=== PATIENT | female | born 1945 | race Caucasian/White ===

== ENCOUNTER 2017-09-05 08:39 | Inpatient (IN) | payer MEDICARE ==
[~2017-09-05] VITALS: Ht 167.6 cm; Wt 51.0 kg
[~2017-09-05 08:39] MED LIST: ADDE30XR PO; CYMB60CA PO; HRT PO; [UNRECOGNIZED DRUG - OTHER] PO; suboxone PO
[2017-09-05] MEDS ORDERED: GENTAMICIN SULFATE 80 MG/2 ML VIAL ONE (08:53)
[2017-09-05] MEDS ORDERED: ACETAMINOPHEN 1000 MG/100 ML 100 ML IV ONE ×2 (09:23)
[2017-09-05] MEDS ORDERED: TRAM50TA PO (09:28)
[2017-09-05] MEDS ORDERED: CHLORHEXIDINE GLUCONATE 2 % 1 PACK (2 CLOTHS) TOPICAL PRN (09:30)
[2017-09-05] MEDS ORDERED: INSULIN HUMAN REGULAR 1,000 UNITS/10 ML VIAL SQ PRN (09:30)
[2017-09-05] MEDS ORDERED: POVIDONE IODINE 5% (ANTISEPSIS KIT) 4 APPLICATIONS EACH NARE PRN (09:30)
[2017-09-05] MEDS ORDERED: LACTATED RINGER'S 1000 ML IV PRN (09:30)
[2017-09-05] MEDS ORDERED: SODIUM CHLORID 0.9% 500 ML IV PRN (09:30)
[2017-09-05] MEDS ORDERED: METOPROLOL TARTRATE 25 MG TAB PO PRN (09:30)
[2017-09-05] MEDS ORDERED: EXPAREL PERI-ARTICULAR INJECTION (TOTAL VOL. 60 ML) P-ARTICULR SCH ×2 (09:45)
[2017-09-05] MEDS ORDERED: VANCOMYCIN 1000 MG/NS 250 ML (for <70 kg) IV SCH ×2 (09:45)
[2017-09-05] MEDS ORDERED: TRANEXAMIC ACID IV SCH (09:45)
[2017-09-05] MEDS ORDERED: SODIUM CHLORIDE 0.9% IV SCH (09:45)
[2017-09-05] MEDS ORDERED: ceFAZolin 2 GM PREMIX 50 ML IV SCH (09:45)
[2017-09-05] MEDS ORDERED: CHLORHEXIDINE GLUCONATE 4% SOLN 120 ML BTL TOPICAL SCH (09:45)
[2017-09-05] MEDS ORDERED: VANCOMYCIN 1 GM/200 ML INJ 200 ML IV ONE (09:54)
[2017-09-05] MEDS ORDERED: ceFAZolin INJ 1,000 MG VIAL ONE (10:16)
[2017-09-05] MEDS ORDERED: ONDANSETRON HCL 4 MG/2 ML VIAL IV ONE (12:00)
[2017-09-05] MEDS ORDERED: PROPOFOL 200 MG/20 ML AMP IV ONE (12:00)
[2017-09-05] MEDS ORDERED: PHENYLEPH/NS 1000 MCG/10 ML SYR IV ONE (12:00)
[2017-09-05] MEDS ORDERED: ROCURONIUM INJ 50 MG/5 ML SYRINGE IV PUSH ONE (12:00)
[2017-09-05] MEDS ORDERED: NEOSTIGMINE 5 MG/5 ML SYRINGE IV PUSH ONE (12:00)
[2017-09-05] MEDS ORDERED: NORMOSOL R INJ 1,000 ML IV ONE (12:00)
[2017-09-05] MEDS ORDERED: LIDOCAINE HCL 1% PF 5 ML SYRINGE OTHER ONE (12:00)
[2017-09-05] MEDS ORDERED: GLYCOPYRROLATE 1 MG/5 ML SYRINGE IV PUSH ONE (12:00)
[2017-09-05] MEDS ORDERED: ALUMINUM/MAGNESIUM/SIMETH 30 ML CUP PO PRN (13:15)
[2017-09-05] MEDS ORDERED: ACETAMINOPHEN/HYDROcodone 325 MG/10 MG TAB PO PRN (13:15)
[2017-09-05] MEDS ORDERED: MISCELLANEOUS NURSING INFORMATION XX PRN (13:15)
[2017-09-05] MEDS ORDERED: Post-op Orders (for Pharmacy) XX ONE (13:15)
--- NOTE | 2017-09-05 13:17 | PD.OP ---
cc: Jesus Landers MD Operative Report Date of Surgery: Sep 05, 2017 Preoperative Diagnosis: Status post internal fixation right peritrochanteric hip fracture. 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 Surgeon: Jesus Landers [employer](s): NEGAR Bonilla Operation and Findings: EBL: 550 cc INDICATION: This patient is a 72-year-old female with a previous hip fracture treated elsewhere. She has significant lateral subluxation of the right hip with evidence of avascular necrosis. She presents now for removal of fixation and surgical treatment. NOTE: Brandee Bonilla PA-C was present for the entire surgical procedure as my apartment assistant manager. In my medical opinion her skill and care was necessary for the proper management of this patient. COMPONENTS: COMPANY: [employer] CUP: [place], 52 mm, 100 series STEM: Size 5, high offset, [place], uncemented HEAD: 36, +1.5, metal 12/14 taper PROCEDURE: This patient was brought to the operating room and anesthetized in the supine position and positioned on the routine table in the clean air suite. The patient was then rolled to a right side up lateral position and held with a Biomet hip positioner. The hip and leg was scrubbed with alcohol followed by Hibiclens followed by chloro prep and draped sterilely. A timeout was done and antibiotics were given within a routine time window. A 4 inch incision was made starting along the posterior one third of the greater trochanter. The iliotibial band was opened in line with the incision. The [place]ley retractors were positioned. The posterior capsule and external rotators were taken down together in a sleeve. The sciatic nerve was palpated to be free of any obstruction or compression and posterior to the hip joint without any evidence of traction from the retractor. There was a previous trochanteric nail that was identified. There were dissected from the surrounding tissue. The zac was removed first by removing the distal screw through separate incision, the trochanteric crossbow was removed and then finally the zac was removed in a retrograde fashion. The femoral neck was exposed. The head was removed. The neck was cut at the right location. The acetabulum was inspected. Deep retractors were positioned. The acetabulum was deepened down to the floor and started with a proper size reamer and reaming up to 51 mm. This was trialed with the same size trial. Overall fit was satisfactory. The rim was then reamed with a 52 mm reamer. The proper cup was placed in approximately 40 of abduction and 30 of forward flexion. The final liner was positioned. Retractors were positioned allowing good visualization of the proximal femur. A box osteotome was utilized followed by progressive broaching for the [place] stem. This was reamed and broached and eventually advanced to a size 5 high offset stem. A trial reduction showed satisfactory stability. Offset was satisfactory. Leg length was reestablished. At 90 of flexion it was stable to 50 of internal rotation. The hip could not be subluxed anteriorly. The canal was irrigated copiously. Hemostasis was controlled. The final stem was inserted in approximately 20 of anteversion. The final head was impacted. The hip was reduced and stability, offset and leg length was as previously noted. The posterior capsule and external rotators were repaired through bone with interrupted #2 Tycron sutures. The piriformis muscle was repaired with the same. The iliotibial band with interrupted #1 Vicryl sutures. Subcutaneous tissue was approximated with 2-0 Vicryl suture and skin with running intradermal 3-0 Vicryl followed by Steri-Strips and benzoin. A sterile dressing was applied.. The sponge count needle counts and instrument counts were all correct. The patient was awakened and taken to the recovery room in satisfactory condition FINDINGS: There was significant deformity to the femoral head which was in a retrograde position. There was significant acetabular dysplasia. This was corrected partially by placing the hip center down lower than before bringing up to a 50 mm acetabulum. The final fit and balance was very satisfactory. Jesus Landers MD Sep 05, 2017 13:17
[2017-09-05] MEDS ORDERED: ECASA81 PO (13:18)
[2017-09-05] MEDS ORDERED: HYDR-3583 PO (13:18)
[2017-09-05] MEDS ORDERED: *morphine SULFATE 10 MG/ML PERIprocedure ONLY ONE (13:33)
[2017-09-05] MEDS ORDERED: MIDAZOLAM HCL 2 MG/2 ML VIAL ONE (13:38)
[2017-09-05] MEDS ORDERED: MORPHINE SULFATE 4 MG/ML INJ ONE (13:38)
--- NOTE | 2017-09-05 13:48 | EKG ---
Date Performed: 09/05/2017 Time Performed: 09:47:03 PTAGE: 72 years EKG: Sinus rhythm VOLTAGE CRITERIA FOR LVH ANTEROLATERAL MYOCARDIAL INFARCTION , OF INDETERMINATE AGE ABNORMAL ECG I c annot accurately compare this EKG as the prior one had marked baseline artifact. PREVIOUS TRACING : 04/28/2010 11.08 DOCTOR: Abdiel Pereyra Interpretating Date/Time 09/05/2017 13:47:07
[2017-09-05] MEDS: LACTATED RINGER'S 1000 ML INJ 1,000 ML IV SCH (14:00)
[2017-09-05] MEDS ORDERED: ASPIRIN EC 81 MG TABEC PO ONE (14:00)
--- NOTE | 2017-09-05 15:15 | RADRPT ---
EXAM DATE/TIME: 09/05/2017 14:16 [facility] COMPARISON: No previous studies available for comparison. INDICATIONS : Post-op right hip replacement. MEDICAL HISTORY : Gastroesophageal reflux disease. SURGICAL HISTORY : Right total hip replacement. ENCOUNTER: Initial ACUITY: 1 day PAIN SCORE: 5/10 LOCATION: Right hip. FINDINGS: AP and crosstable lateral views of the right hip were obtained and demonstrate that the patient is st atus post arthroplasty. The femoral and acetabular components are intact and in normal alignment. The re is adjacent soft tissue swelling and gas. There is diffuse osteopenia. CONCLUSION: Expected postoperative changes status post arthroplasty. Saqib Funes MD on September 05, 2017 at 15:11 Board Certified Radiologist. This report was verified electronically.
[2017-09-05] MEDS ORDERED: DO NOT ADM ANY ANTICOAGULANT DRUGS PRN (15:30)
[2017-09-05 15:47] VITALS: BP 124/74; PULSE 65; RESP 18; TEMP 96.1; O2SAT 94
[2017-09-05] MEDS: ASPIRIN EC 81 MG TABEC PO SCH (18:00)
[2017-09-05 20:00] VITALS: BP 102/60; PULSE 102; RESP 16; TEMP 99.3; O2SAT 98
[2017-09-05] MEDS: ACETAMINOPHEN/HYDROcodone 325 MG/10 MG TAB PO PRN (20:42)
[2017-09-05] MEDS: SENNOSIDES 8.6 MG TAB PO SCH (20:46)
[2017-09-05] MEDS: MAGNESIUM HYDROXIDE SUSP 30 ML CUP PO SCH (20:46)
[2017-09-05] MEDS ORDERED: TEMAZEPAM 15 MG CAP PO PRN (21:00)
[2017-09-05] MEDS: MORPHINE SULFATE 8 MG/ML INJ IM PRN (22:19)
[2017-09-05] MEDS: ONDANSETRON HCL 4 MG/2 ML VIAL IVP PRN (23:13)
[2017-09-06] VITALS (7 sets, daily range): BP systolic 88–117; BP diastolic 52–62; PULSE 66–114; RESP 15–20; TEMP 98.5–101.5; O2SAT 96–98
[2017-09-06] MEDS: LACTATED RINGER'S 1000 ML INJ 1,000 ML IV SCH ×2 (00:36→14:08)
[2017-09-06] MEDS: ACETAMINOPHEN/HYDROcodone 325 MG/10 MG TAB PO PRN (03:54)
[2017-09-06] MEDS: ASPIRIN EC 81 MG TABEC PO SCH ×2 (06:07→18:45)
[2017-09-06] MEDS: MORPHINE SULFATE 8 MG/ML INJ IM PRN (06:40)
[2017-09-06] MEDS: ONDANSETRON HCL 4 MG/2 ML VIAL IVP PRN ×3 (06:41→18:01)
[2017-09-06] MEDS: MAGNESIUM HYDROXIDE SUSP 30 ML CUP PO SCH ×2 (08:50→20:48)
[2017-09-06] MEDS ORDERED: WALKER WHEELS/F1 MIS (09:44)
[2017-09-06] MEDS ORDERED: COMMODE 3-IN-11 MIS (09:45)
[2017-09-06] MEDS ORDERED: OXYC1TAB36 PO (09:46)
--- NOTE | 2017-09-06 09:54 | PD.ORT.PN ---
Subjective Subjective Remarks As I entered the room patient was speaking with PT and refusing PT today. She states she just wanted to nap and she didn't sleep well last night. She states her pain is 'severe and out of control'. She refused her norco this morning. She states it doesn't work so she's 'not taking it'. She states the only thing that works for her is dilaudid. She refused any labwork this morning. She states 'everything hurts'. She does not answer whether she has any abdominal pain, CP or SOB. Objective Vitals Vital Signs Date Time Temp Pulse Resp B/P (MAP) Pulse Ox O2 Delivery O2 Flow Rate FiO2 09/06/17 08:00 99.3 76 17 107/58 (74) 96 09/06/17 04:00 99.9 66 15 88/52 (64) 09/06/17 00:00 101.5 112 15 96/59 (71) 96 09/05/17 20:00 99.3 102 16 102/60 (74) 98 09/05/17 15:47 96.1 65 18 124/74 (91) 94 09/05/17 14:50 97.2 64 15 134/65 (88) 96 Nasal Cannula 2 09/05/17 14:45 63 15 130/63 (85) 96 Nasal Cannula 2 09/05/17 14:30 65 15 124/66 (85) 96 Nasal Cannula 2 09/05/17 14:15 66 15 120/61 (80) 95 Nasal Cannula 2 09/05/17 14:00 70 15 123/67 (85) 94 Nasal Cannula 2 09/05/17 13:45 74 14 114/60 (78) 94 Nasal Cannula 2 09/05/17 13:38 15 09/05/17 13:30 81 14 110/61 (77) 100 Nasal Cannula 3 09/05/17 13:25 97.6 88 14 104/68 (80) 99 Nasal Cannula 3 I/O 09/05/17 09/05/17 09/05/17 09/06/17 09/06/17 09/06/17 07:00 15:00 23:00 07:00 15:00 23:00 Intake Total 1375 ml 1060 ml 240 ml Output Total 3900 ml 550 ml Balance -2525 ml 1060 ml -310 ml Intake Oral 960 ml 240 ml IV Total 1375 ml 100 ml Output Urine Total 450 ml 550 ml Estimated Blood Loss 450 ml Other 3000 ml # Voids 1 # Bowel Movements 0 Imaging Last 24 hours Impressions Hip X-Ray 09/05/17 1308 Signed Impressions: Service Date/Time: September 14:16 - CONCLUSION: Expected postoperative changes status post arthroplasty. Saqib Funes MD Objective Remarks Laying in bed Affect goes from anger to tears to silence VSS RLE Dressing c/d/i, no drainage, mild swelling, no erythema +motor at, +sens, +nvi Neg homans sign Assessment & Plan Ortho Post Op Day #: 1 Problem List: Assessment and Plan pod#1 removal hardware, conversion to R TYREE Ortho stable. Pain difficult to assess. Patient demanding dilaudid stating she will 'report me and leave this hospital' if I don't control her pain with dilaudid. Change [place] to Percocet 10mg. PT - WBAT RLE. TYREE precautions. Pt refused this morning. I educated pt I would not release her to home health care if she did not prove independence with activity here in the hospital. Hold dressing changes unless saturated. ASA 81mg BID for dvt prophylaxis. D/Cplanning, prefers d/c [facility] tomorrow. Will repeat labs as pt lost 500cc blood in OR. She refused this morning. She now states she will allow it. F/U in 2 weeks as scheduled. Carina Diaz Sep 06, 2017 09:54
[2017-09-06] MEDS ORDERED: oxyCODONE/ACETAMINOPHEN 10 MG/325 MG TAB PO PRN (10:00)
[2017-09-06] MEDS: oxyCODONE/ACETAMINOPHEN 10 MG/325 MG TAB PO PRN (10:21)
[2017-09-06 11:29] LABS: AUTOMATED NEUTROPHIL # 4.4 TH/MM3 (1.8-7.7); BASOPHIL % 0.2 % (0.0-2.0); EOSINOPHIL # 0.1 TH/MM3 (0-0.4); EOSINOPHIL % 1.2 % (0.0-4.0); HEMATOCRIT 28.3 % (35.0-46.0); HEMOGLOBIN 9.3 GM/DL (11.6-15.3); LYMPH % 21.6 % (9.0-44.0); LYMPHOCYTE # 1.4 TH/MM3 (1.0-4.8); MEAN CELL VOLUME 83.4 FL (80.0-100.0); MEAN CORPUSCULAR HEMOGLOBIN 27.5 PG (27.0-34.0); MEAN CORPUSCULAR HGB CONC 32.9 % (32.0-36.0); MEAN PLATELET VOLUME 8.2 FL (7.0-11.0); MONO % 10.1 % (0.0-8.0); MONOCYTE # 0.7 TH/MM3 (0-0.9); NEUT % 66.9 % (16.0-70.0); PLATELET COUNT 280 TH/MM3 (150-450); RED CELL DISTRIBUTION WIDTH 16.5 % (11.6-17.2); WHITE BLOOD COUNT 6.6 TH/MM3 (4.0-11.0)
[2017-09-06] MEDS: MORPHINE SULFATE 8 MG/ML INJ IV PUSH PRN ×2 (11:52→14:50)
[2017-09-06] MEDS ORDERED: LORazepam 1 MG TAB PO PRN (15:30)
--- NOTE | 2017-09-06 15:36 | HHI.DCPOC ---
Discharge Care Plan Diagnosis: (1) Avascular necrosis of bone of right hip Your Health Problems Are: Anxiety Difficulty with ADL Incision/Drains Inflammation Goals to Promote Your Health * To prevent worsening of your condition and complications * To maintain your health at the optimal level Directions to Meet Your Goals Take your medications as prescribed Follow your dietary instruction Follow activity as directed Keep your appointments as scheduled Take your immunizations and boosters as scheduled If your symptoms worsen call your PCP, if no PCP go to Urgent Care Center or Emergency Room Smoking is Dangerous to Your Health. Avoid second hand smoke Call the 24-hour hour crisis hotline for domestic abuse at Carina Diaz Sep 06, 2017 15:36
--- NOTE | 2017-09-06 15:40 | HHI.FF ---
Face to Face Verification Diagnosis: (1) Avascular necrosis of bone of right hip Physical Therapy Gait training, Safety evaluation, Transfer training, bed to chair Hip: Total hip, Protocol: Right, Posterior hip precautions, Abduction pillow while in bed, Progress to weight bearing Right LE Weight Bearing: WB as tolerated Additional Instructions PT 4 days/wk for 2 weeks. WBAT RLE. Posterior hip precautions. Walker as needed. LE strengthening. Nursing RN Days per Week: 2 x Week(s): 1 Dressing Changes: Do not change dressing Additional Instructions Vitals assessment. Dressing assessment - do not change unless saturated or erythema. I have seen patient Kaylynn Raines on 09/06/17. My clinical findings support the need for the requested home health care services because: Limited ability to care for self High risk of falls I certify that my clinical findings support that this patient is homebound because: Post-op weakness Unsteady gait/balance Carina Diaz Sep 06, 2017 15:40
--- NOTE | 2017-09-06 16:04 | HHI.DS ---
Discharge Summary Admission Date Sep 05, 2017 at 08:39 Discharge Date: Sep 07, 2017 Admitting Diagnosis see below Diagnosis: (1) Anxiety Diagnosis: Secondary ICD Codes: F41.9 - Anxiety disorder, unspecified (2) Avascular necrosis of bone of right hip Diagnosis: Principal ICD Codes: M87.051 - Idiopathic aseptic necrosis of right femur Procedures Conversion to Right TYREE, posterior approach Brief History This is a 72 year old female patient with a history of previous right hip fracture and surgical ORIF May of 2017. She states her pain continued and increased over the last 4 months. She presented for treatment with Dr. Landers as her previous physician told her he did not treat her condition. Xrays were taken showing advancing avascular necrosis of the femoral head. Surgical treatment was recommended in the form of conversion to total hip arthroplasty. She agreed and now presents for the above procedure. CBC/BMP: 09/06/17 1101 Significant Findings Laboratory Tests Test 09/06/17 11:01 Red Blood Count 3.40 MIL/MM3 (4.00-5.30) Hemoglobin 9.3 GM/DL (11.6-15.3) Hematocrit 28.3 % (35.0-46.0) Monocytes (%) (Auto) 10.1 % (0.0-8.0) PE at Discharge Laying in bed Affect goes from anger to tears to silence VSS RLE Dressing c/d/i, no drainage, mild swelling, no erythema +motor at, +sens, +nvi Neg homans sign Hospital Course Surgical treatment was performed on the day of admission without complication. She recovered well in PACU and was transferred to the orthopaedic floor. DVT prophylaxis was initiated with ASA 81mg BID. Pain control was attempted with [place] 10 and morphine. The patient took a single dose of the [place] and then declined the next day stating it wasn't doing anything and her pain was excruciating. Her postop xrays showed a stable, well positioned prosthesis. She then began to request dilaudid specifically in addition to the morphine. The [place] was discontinued and she was given percocet 10mg [id number]. She declined PT day 1 and her labs day 1. This was discussed during rounding and she agreed to follow through with both as they were ordered in her best medical interest. Later that day the nurse observed the patient carrying lorazepam in her purse which was not disclosed on her medications list upon arrival. After discussing her case further the morphine was discontinued. She was placed on Dilaudid 1mg q3h and Soma 350mg q12h. She was also given lorazepam 1mg q8h for anxiety. After ___ days she was found to be stable with only moderate pain control and discharged ___. She was educated to continue her therapy, to pursue a high fiber diet for 2-5 days and to ice the operative site twice daily for 1-2 weeks. She was given prescriptions for ASA 81mg BID, Percocet 10mg q4 and ____. Pt Condition on Discharge: Stable Discharge Disposition: Disch w/ Home Health Serv Discharge Instructions Diet Instructions: As Tolerated, No Restrictions, High Fiber Diet Additional Diet Instructions: High fiber diet for 3-4 days postop Activities You Can Perform: Weight Bearing as Luis Alberto Activities to Avoid: Strenuous Activity Additional Activity Instruc.: Posterior TYREE protocol New Medications: Commode 3-in-1 (Commode 3-in-1) 1 Mis Mis EA .XX DIRECTED, #1 0 Refills Walker with Front Wheels (Walker with Front Wheels) 1 Mis Mis EA .XX DIRECTED, #[address] (Aspirin DR) 81 Mg Tabdr 81 MG PO BID for Prevent Blood Clot, #60 TAB Oxycodone HCl/Acetaminophen (Oxycodone-Acetaminophen 10-325) 10 Mg-325 Mg Tablet 1 TAB PO Q4H PRN for PAIN SCALE 1 TO 7 for 7 Days, #42 TAB 0 Refills Continued Medications: Tramadol (Tramadol) 50 Mg Tab 50 MG PO Q8H PRN for PAIN, TAB 0 Refills Carina Diaz Sep 06, 2017 16:04
[2017-09-06] MEDS: CARISOPRODOL 350 MG TAB PO PRN (16:19)
[2017-09-06] MEDS: HYDROmorphone HCL PF 2 MG/ML VIAL IV PUSH PRN ×3 (17:56→23:55)
[2017-09-06] MEDS: SENNOSIDES 8.6 MG TAB PO SCH (20:48)
[2017-09-07] VITALS: BP 106/63; PULSE 108; RESP 20; TEMP 101.5; O2SAT 99
[2017-09-07] MEDS: ACETAMINOPHEN 325 MG TAB PO PRN ×2 (00:10→23:03)
[2017-09-07] MEDS: CARISOPRODOL 350 MG TAB PO PRN ×2 (00:58→12:53)
[2017-09-07] MEDS: HYDROmorphone HCL PF 2 MG/ML VIAL IV PUSH PRN ×5 (07:42→22:25)
[2017-09-07] MEDS: ONDANSETRON HCL 4 MG/2 ML VIAL IVP PRN ×3 (07:42→22:28)
--- NOTE | 2017-09-07 07:44 | PD.ORT.PN ---
Subjective Subjective Remarks better pain control this morning Objective Vitals Vital Signs Date Time Temp Pulse Resp B/P (MAP) Pulse Ox O2 Delivery O2 Flow Rate FiO2 09/07/17 00:00 101.5 108 20 106/63 (77) 99 09/06/17 20:00 101.1 114 20 106/55 (72) 97 09/06/17 19:04 Room Air 09/06/17 17:28 98 21 09/06/17 16:00 98.5 113 19 117/62 (80) 98 09/06/17 12:00 99.5 106 18 105/60 (75) 98 09/06/17 08:00 99.3 76 17 107/58 (74) 96 I/O 09/06/17 09/06/17 09/06/17 09/07/17 09/07/17 09/07/17 07:00 15:00 23:00 07:00 15:00 23:00 Intake Total 240 ml 340 ml Output Total 550 ml Balance -310 ml 340 ml Intake Oral 240 ml 340 ml Output Urine Total 550 ml # Voids 4 2 # Bowel Movements 0 Result Diagram: 09/06/17 1101 Imaging Last 24 hours Impressions Hip X-Ray 09/05/17 1308 Signed Impressions: Service Date/Time: September 14:16 - CONCLUSION: Expected postoperative changes status post arthroplasty. Saqib Funes MD Procedures Conversion to Right TYREE, posterior approach Objective Remarks Laying in bed only mild dristress RLE Dressing c/d/i, no drainage, mild swelling, no erythema (no change) +motor at, +sens, +nvi Neg homans sign Assessment & Plan Problem List: (1) Anxiety ICD Codes: F41.9 - Anxiety disorder, unspecified (2) Avascular necrosis of bone of right hip ICD Codes: M87.051 - Idiopathic aseptic necrosis of right femur Assessment and Plan pod#2 removal hardware, conversion to R TYREE Ortho stable, better pain control Dilaudid 1mg Q3 hours is helping better PT - WBAT RLE. TYREE precautions. No dressing changes at this time ASA 81mg BID for dvt prophylaxis. D/C planning, prefers d/c home w [facility] when stable F/U in 2 weeks as scheduled. Lionel Teran MD Sep 07, 2017 07:44
[2017-09-07] MEDS: ASPIRIN EC 81 MG TABEC PO SCH ×2 (07:51→18:00)
[2017-09-07 08:00] VITALS: BP 97/53; PULSE 109; RESP 17; TEMP 97.7; O2SAT 97
[2017-09-07] MEDS: MAGNESIUM HYDROXIDE SUSP 30 ML CUP PO SCH ×2 (09:00→21:00)
[2017-09-07 12:00] VITALS: BP 93/58; PULSE 106; RESP 17; TEMP 98.8; O2SAT 99
[2017-09-07] MEDS ORDERED: OMEP20TA93 PO (12:36)
[2017-09-07] MEDS: LACTATED RINGER'S 1000 ML INJ 1,000 ML IV SCH (15:08)
[2017-09-07 16:00] VITALS: BP 89/53; PULSE 100; RESP 17; TEMP 98.3; O2SAT 97
[2017-09-07 20:00] VITALS: BP 107/59; PULSE 111; RESP 18; TEMP 99.7; O2SAT 99
[2017-09-07] MEDS: SENNOSIDES 8.6 MG TAB PO SCH (21:00)
[2017-09-07 22:58] VITALS: BP 106/58; PULSE 113; RESP 20; TEMP 101.1; O2SAT 98
[2017-09-08] MEDS: HYDROmorphone HCL PF 2 MG/ML VIAL IV PUSH PRN ×2 (03:59→08:28)
[2017-09-08 04:02] VITALS: TEMP 98.7
[2017-09-08] MEDS: ASPIRIN EC 81 MG TABEC PO SCH ×2 (06:29→16:20)
[2017-09-08 08:00] VITALS: BP 107/62; PULSE 97; RESP 18; TEMP 99.9; O2SAT 100
[2017-09-08] MEDS: MAGNESIUM HYDROXIDE SUSP 30 ML CUP PO SCH (08:24)
[2017-09-08] MEDS: ONDANSETRON HCL 4 MG/2 ML VIAL IVP PRN (08:49)
[2017-09-08 10:11] VITALS: O2SAT 100
--- NOTE | 2017-09-08 10:20 | PD.ORT.PN ---
Subjective Post Op Day #: 3 Subjective Remarks Pain is improving to left hip. Patient requesting to go home today. Objective Vitals Vital Signs Date Time Temp Pulse Resp B/P (MAP) Pulse Ox O2 Delivery O2 Flow Rate FiO2 09/08/17 10:11 100 09/08/17 08:00 99.9 97 18 107/62 (77) 100 09/08/17 04:02 98.7 09/07/17 22:58 101.1 113 20 106/58 (74) 98 09/07/17 20:03 Room Air 09/07/17 20:00 99.7 111 18 107/59 (75) 99 09/07/17 16:00 98.3 100 17 89/53 (65) 97 09/07/17 12:00 98.8 106 17 93/58 (70) 99 I/O 09/07/17 09/07/17 09/07/17 09/08/17 09/08/17 09/08/17 07:00 15:00 23:00 07:00 15:00 23:00 Intake Total 340 ml 480 ml 240 ml Balance 340 ml 480 ml 240 ml Intake Oral 340 ml 480 ml 240 ml # Voids 2 2 1 # Bowel Movements 0 0 Result Diagram: 09/06/17 1101 Imaging Last 24 hours Impressions Hip X-Ray 09/05/17 1308 Signed Impressions: Service Date/Time: September 14:16 - CONCLUSION: Expected postoperative changes status post arthroplasty. Saqib Funes MD Procedures Conversion to Right TYREE, posterior approach Objective Remarks Laying in bed only mild distress RLE Dressing c/d/i, no drainage, mild swelling, no erythema (no change) +motor at, +sens, +nvi Neg homans sign Assessment & Plan Problem List: (1) Anxiety ICD Codes: F41.9 - Anxiety disorder, unspecified (2) Avascular necrosis of bone of right hip ICD Codes: M87.051 - Idiopathic aseptic necrosis of right femur Assessment and Plan pod#3 removal hardware, conversion to R TYREE Ortho stable, better pain control Dilaudid 1mg Q3 hours is helping better. Will DC this today. PT - WBAT RLE. TYREE precautions. No dressing changes at this time ASA 81mg BID for dvt prophylaxis. D/C planning, stable for discharge home with home health today. F/U in 2 weeks as scheduled. Kyle Benitez Sep 08, 2017 10:20
[2017-09-08 12:00] VITALS: BP 96/60; PULSE 91; RESP 20; TEMP 98.1; O2SAT 98
[2017-09-08] MEDS: oxyCODONE/ACETAMINOPHEN 10 MG/325 MG TAB PO PRN ×2 (12:03→16:19)
[2017-09-08 17:37] VITALS: O2SAT 97
== END 2017-09-08 17:43 | disposition home or self-care (01) | DRG 470 ==
LOC: HSDI 08:39 → N06A 15:06
PROVIDERS: ADMIT Orthopaedic Surgery Orthopaedic Surgery of the Spine; ATTEND Orthopaedic Surgery Orthopaedic Surgery of the Spine
PROC: 0QP604Z Removal of Internal Fixation Device from Right Upper Femur, Open Approach (ICD-10-PCS; 2017-09-05)
PROC: 0SR902A Replacement of Right Hip Joint with Metal on Polyethylene Synthetic Substitute, Uncemented, Open Approach (ICD-10-PCS; principal; 2017-09-05 10:45)
DX: M87.9 Osteonecrosis, unspecified (principal); S73.001A Unspecified subluxation of right hip, initial encounter; F41.9 Anxiety disorder, unspecified; K21.9 Gastro-esophageal reflux disease without esophagitis; Z87.891 Personal history of nicotine dependence
CPT/HCPCS: 73502; 85025; 86850; 86900; 86901; 86920; 93005; 94150; C1776; C9290; J0131; J0690; J1170; J1580; J2250; J2270; J2370; J2405; J2710; J3010; J3370; J7120